=== PATIENT | male | born 2000 | race African-American/Black ===

== ENCOUNTER 2022-05-01 07:02 | Emergency (ER) | payer MEDICAID ==
[~2022-05-01] VITALS: Ht 190.5 cm; Wt 143.0 kg
[2022-05-01 08:34] LABS: BASOPHILS % 0.2 % (0.0-2.0); EOSINOPHILS % 2.2 % (0.0-5.0); HEMATOCRIT. 44.8 % (42.0-52.0); HEMOGLOBIN. 15.9 g/dL (14.0-18.0); LYMPHOCYTES % 7.3 % (20.0-50.0); MEAN CORPUSCULAR HEMOGLOBIN 34.9 pg (28.0-32.0); MEAN CORPUSCULAR VOLUME 98.3 fL (80.0-94.0); MEAN PLATELET VOLUME 7.4 fl (7.4-10.4); MONOCYTES % 5.8 % (2.0-8.0); NEUTROPHILS % 84.5 % (40.0-76.0); PLATELET 305 x1000/uL (130-400); RED BLOOD CELL COUNT 4.56 mill/uL (4.7-6.1); RED CELL DISTRIBUTION WIDTH 13.2 % (11.6-14.6)
[2022-05-01 08:44] LABS: CHLORIDE 106 mEq/L (98-107)
[2022-05-01] MEDS ORDERED: MORPHINE SULFATE 10 MG/ML CPJ IV ONE (09:30)
[2022-05-01] MEDS ORDERED: KETOROLAC 30MG/ML VIAL IV NR (11:45)
[2022-05-01] MEDS ORDERED: MORPHINE SULFATE 10 MG/ML CPJ IV NR (11:45)
[2022-05-01 12:36] LABS: CLARITY URINE CLEAR (CLEAR); COLOR URINE YELLOW (YELLOW); KETONES URINE NEGATIVE (NEGATIVE); LEUKOCYTE ESTERASE URINE NEGATIVE (NEGATIVE); NITRITE URINE NEGATIVE (NEGATIVE); OCCULT BLOOD URINE NEGATIVE (NEGATIVE); PROTEIN URINE NEGATIVE (NEGATIVE); SPECIFIC GRAVITY URINE 1.026 (1.005-1.030)
[2022-05-01 14:01] VITALS: BP 142/74
[2022-05-01] MEDS ORDERED: IBUP-2030 MT (14:43)
== END 2022-05-01 15:06 | disposition home or self-care (01) ==
LOC: ER 07:02
DX: M54.9 Dorsalgia, unspecified (principal); Z20.822 Contact with and (suspected) exposure to COVID-19
CPT/HCPCS: 36415; 71046; 76700; 80048; 81003; 85025; 85379; 87426; 87804; 96374; 96375; 96376; 99285; C9803; J1885; J2270

== ENCOUNTER 2024-12-28 02:30 | Emergency (ER) | payer SELFPAY ==
[~2024-12-28] VITALS: Ht 188 cm; Wt 138.0 kg
[~2024-12-28 02:30] MED LIST: IBUP-2030 MT
[2024-12-28 02:54] VITALS: O2SAT 98
[2024-12-28] MEDS: SODIUM CHLORIDE 0.9% 1,000 ML IV ONE (04:15)
[2024-12-28 05:00] LABS: BASOPHILS % 0.3 % (0.0-2.0); EOSINOPHILS % 0.2 % (0.0-5.0); HEMATOCRIT. 46.3 % (42.0-52.0); HEMOGLOBIN. 15.6 g/dL (14.0-18.0); LYMPHOCYTES % 11.0 % (20.0-50.0); MEAN PLATELET VOLUME 7.0 fl (7.4-10.4); MONOCYTES % 5.6 % (2.0-8.0); NEUTROPHILS % 82.9 % (40.0-76.0); PLATELET 301 x1000/uL (130-400); RED BLOOD CELL COUNT 4.70 mill/uL (4.7-6.1); RED CELL DISTRIBUTION WIDTH 13.4 % (11.6-14.6)
[2024-12-28 05:17] LABS: CREATININE 0.9 mg/dL (0.6-1.3); ETHANOL BLOOD < 10 mg/dL (<10); UREA NITROGEN BLOOD 9 mg/dL (9-23)
[2024-12-28 05:19] LABS: ASPARTATE AMINOTRANSFERASE 19 IU/L (<34); BILIRUBIN DIRECT 0.2 mg/dL (<=3.0); BILIRUBIN TOTAL 0.5 mg/dL (0.1-1.0); PROTEIN TOTAL 7.3 g/dL (6.0-8.3)
[2024-12-28 05:23] LABS: INR 1.1
[2024-12-28 05:59] LABS: *AMPHETAMINES SCREEN URINE NEGATIVE (NEGATIVE); *BARBITURATES SCREEN URINE NEGATIVE (NEGATIVE); *BENZODIAZEPINES SCREEN URINE NEGATIVE (NEGATIVE); *COCAINE SCREEN URINE NEGATIVE (NEGATIVE); CANNABINOID URINE SCREEN PRESUMPTIVE POSITIVE (NEGATIVE); ECSTASY MDMA SCREEN URINE NEGATIVE (NEGATIVE); METHADONE URINE SCREEN NEGATIVE (NEGATIVE); OPIATES URINE SCREEN NEGATIVE (NEGATIVE); PHENCYCLIDINE URINE SCREEN NEGATIVE (NEGATIVE)
[2024-12-28 06:06] LABS: CLARITY URINE CLEAR (CLEAR); COLOR URINE YELLOW (YELLOW); GLUCOSE URINE NEGATIVE (NEGATIVE); PH URINE 6.0 (4.5-8.0); PROTEIN URINE NEGATIVE (NEGATIVE); SPECIFIC GRAVITY URINE 1.027 (1.005-1.030)
[2024-12-28 06:07] LABS: KETONES URINE 1+ (NEGATIVE); LEUKOCYTE ESTERASE URINE NEGATIVE (NEGATIVE); NITRITE URINE NEGATIVE (NEGATIVE); OCCULT BLOOD URINE NEGATIVE (NEGATIVE); UROBILINOGEN URINE 1.0 E.U./dL (0.2-1.0)
[2024-12-28] MEDS ORDERED: ONDA4TAB50 MT (06:14)
[2024-12-28 06:26] VITALS: BP 155/87; PULSE 63; RESP 14; O2SAT 100
== END 2024-12-28 06:36 | disposition home or self-care (01) ==
LOC: ER 02:30
DX: F12.929 Cannabis use, unspecified with intoxication, unspecified (principal); F10.129 Alcohol abuse with intoxication, unspecified; R11.2 Nausea with vomiting, unspecified; R19.7 Diarrhea, unspecified; Z79.899 Other long term (current) drug therapy; Z98.890 Other specified postprocedural states; Y90.0 Blood alcohol level of less than 20 mg/100 ml
CPT/HCPCS: 80076; 80305; 80048; 81003; 80320; 83690; 85025; 85610; 36415; 96360; 99283; J7030; G0480